=== PATIENT | male | born 1960 | race African-American/Black ===

== ENCOUNTER 2016-11-22 09:00 | Inpatient (IN) | payer OTHER ==
--- NOTE | ~2016-11-22 | PA ---
Unit #: [id number] #: [id number] Patient: JAK SIBLEY [id number] [facility] [address] [place] [address] [id number] I MR#: [id number] NAME: JAK SIBLEY ROOM: [facility] Age: 56 Sex: M Admission Date: 11/22/2016 : 1960 Date of Assessment: 11/23/2016 Attending Physician: Craig Quintana M.D. Admitting Physician: Craig Quintana M.D. Primary Care Physician: Primary Care Physician No PSYCHIATRIC ASSESSMENT INFORMANT The patient reliability, fair; chart reliability, good. CHIEF COMPLAINT Depression, cocaine abuse. HISTORY OF PRESENT ILLNESS Mr. Jak Sibley is a 56-year-old male, seen on , presented with the above-mentioned complaint. The patient presented reported using cocaine in the past 3 days, he reported he purchased heroin, but never used before. The patient threw the cocaine away. Recently, the patient reported he went to cemeter where grandmother is buried. The patient stated that he realized that he had hit rock bottom and decided to go and slit his wrist. The patient reported he called friend to pick him up. The patient stated that he was sober for almost 2 years then this episode happened. The patient lives with his significant other and will be able to go home. Think he is clean again and the patient need an inpatient admission at this time for psychiatric stabilization. PAST PSYCHIATRIC HISTORY Remarkable for history of inpatient treatment at [facility] for suicide attempt in 1990. FAMILY HISTORY AND SOCIAL HISTORY The patient has a good support system. No history of abuse. MEDICAL HISTORY Remarkable for history of HIV positive. Musculoskeletal; muscle strength and tone, no atrophy or abnormal movement. Gait, normal. MEDICATION HISTORY The patient is currently on Reyataz and Epzicom. ALLERGIES No known drug allergies. SUBSTANCE ABUSE HISTORY Tobacco use, age of onset 12. Alcohol, age of onset 12. Crack cocaine, half ounces, last use . The patient reported longest period of sobriety 2 years, last period of sobriety in 2014. No history of blackout, history of HIV, history of withdrawal symptom, IV drug use. Currently, reporting headache, abdominal cramping, depressed mood, Unit #: [id number] #: [id number] Patient: JAK SIBLEY restlessness. REVIEW OF SYSTEMS HEENT: Eyes, clear. Ears, nose, mouth, and throat; clear. CARDIOVASCULAR: Unremarkable. RESPIRATORY: Unremarkable. GI: Unremarkable. : Unremarkable. SKIN: Unremarkable. LYMPH NODE: Unremarkable. NEUROLOGIC: Unremarkable. ENDOCRINE: Unremarkable. HEMATOLOGIC: Unremarkable. ALLERGIC/IMMUNOLOGIC: Unremarkable. MUSCULOSKELETAL: Muscle strength and tone, no atrophy or abnormal movement. Gait normal. MENTAL STATUS EXAMINATION CONSTITUTIONAL: Measurement of vital signs; temperature 98.3, pulse 74, respiratory rate 18, blood pressure 94/58, height 5 feet 5 inches, and weight 150 pounds. GENERAL APPEARANCE: The patient dressed casually. The patient did not show any facial deformity. MUSCULOSKELETAL: Please see above. PSYCHIATRIC EXAMINATION Description of speech; regular rate, normal volume, normal articulation, coherent. Description of thought process, goal directed. Description of association, intact. Description of abnormal psychotic thinking; the patient denied any hallucination, delusions, mood lability, depression, substance abuse. Description of patient's judgment; concerning everyday activity, poor. Social situation, poor. Concerning psychiatric condition, poor. Complete mental status examination; oriented in time, place, and person. Recent and remote memory, fair. Attention span and concentration, fair. Language, able to name object and repeat phrases. Fund of knowledge, aware of current event and past history. Vocabulary, intact. Mood and affect, sad and depressed. Insight and judgment, fair to poor. ASSETS AND LIABILITIES Assets; the patient articulate, able to take care of his ADL. Liability, history of substance abuse and depression. ADMITTING DIAGNOSES Psychiatric: Cocaine use disorder, moderate, F14.20; mood disorder, not otherwise specified, F32.9. Secondary diagnosis: Deferred. Medical diagnosis: History of human immunodeficiency virus positive. Stressors: Psychosocial stressors. PSYCHIATRIC PLAN AND TREATMENT GOAL AND DISCHARGE PLAN 1. Advised to admit the patient on the inpatient unit. Provide safe, supportive, and structured environment. 2. Ordered labs; CBC, CMP, UA, and UDS. Unit #: [id number] #: [id number] Patient: JAK SIBLEY 3. Precaution for detox protocol and detox monitoring. 4. The patient to attend all the programing on the inpatient unit, group therapy, individual therapy. I advised to resume home medication. If needed, consider further adjustment of medication. The patient to attend all the programing on the inpatient unit. TREATMENT GOAL To attain euthymic mood, gain insight into his problem, and learn coping skills. DISCHARGE PLAN Plan to stabilize the patient and consider followup in outpatient program. ESTIMATED LENGTH OF STAY 3 to 5 days. Dictated by... Kristen Chandler/keyon TD: 11/24/2016 06:57 JOB #: [id number] PSYCHIATRIC ASSESSMENT Page 1 of 1 X Craig Quintana MD X PSYCHIATRIC ASSESSMENT
--- NOTE | ~2016-11-22 | HP ---
Unit #: [id number] #: [id number] Patient: JAK SIBLEY [id number] [place] [address] [id number] MR#: [id number] NAME: JAK SIBLEY ROOM: [facility] Age: 56 Sex: M Admission Date: 11/22/2016 : 1960 Attending Physician: Craig Quintana M.D. Admitting Physician: Craig Quintana M.D. Primary Care Physician: Primary Care Physician No HISTORY AND PHYSICAL HISTORY OF PRESENT ILLNESS The patient is a 56-year-old male who states he was admitted due to drug abuse, cocaine. PAST MEDICAL HISTORY Significant for HIV. PAST SURGICAL HISTORY None. ALLERGIES None. SOCIAL HISTORY Positive for cocaine. FAMILY HISTORY Noncontributory. REVIEW OF SYSTEMS CONSTITUTIONAL: No fever or chills. HEENT: Denies any sore throat, ear pain or runny nose. CARDIOVASCULAR: Denies chest pain, irregular heart rhythm or palpitations. CHEST: Denies shortness of breath or cough. No hemoptysis. GASTROINTESTINAL: Denies nausea, vomiting, diarrhea or chronic constipation. ENDOCRINE: Denies history of increased thirst or urination. No recent significant weight loss or gain. GENITOURINARY: Denies dysuria, frequency, or hematuria. SKIN: Denies any rashes. HEMATOLOGIC: Denies history of increased bleeding or bruising. MUSCULOSKELETAL: Denies any hot, swollen joints. No generalized muscle pain. NEUROLOGIC: Denies problems with vision or speech. No frequent, severe headaches. No numbness, tingling or weakness in any extremities. Denies loss of bladder or bowel control. CURRENT MEDICATIONS Not available, being verified at this time. PHYSICAL EXAMINATION GENERAL: Alert, oriented, in no acute distress. VITAL SIGNS: Temperature 98.5, heart rate 85, respirations 18, blood Unit #: [id number] #: [id number] Patient: JAK SIBLEY pressure 127/85. HEIGHT: 5 feet 5 inches. WEIGHT: 150 pounds. SKIN: Warm and dry without rash or lesion. Scar to bilateral upper arms, piercing to the left ear and callus to the right heel. HEENT: Normocephalic. TMs not viewed. Oral and nasal passages clear. Conjunctivae clear. PERRLA. EOMs intact. NECK: Supple without lymphadenopathy or thyromegaly. HEART: Regular rate and rhythm without murmur. LUNGS: Clear. ABDOMEN: Soft, nontender, without masses or hepatosplenomegaly. : Not done. EXTREMITIES: No evidence of cyanosis, clubbing or edema. Moves all without focal deficit. NEUROLOGICAL: Grossly within normal limits. Cranial Nerves: II: Visual marks are intact. III, IV AND : Extraocular movements are intact. Pupils are equal, round and reactive to light. V: Facial sensation is grossly normal. VII: Facial movements and expression are normal. VIII: Auditory acuity grossly intact. IX, X: Uvula is midline. Phonation is normal. XI: Patient shrugs shoulders and turns head normally. XII: Tongue protrudes in the midline. Sensory and Motor Function: Sensory and motor sensation is grossly normal. Motor: moves all extremities well. Coordination: Gait is normal. Deep Tendon Reflexes: Intact. IMPRESSION Psychiatric admission. RECOMMENDATIONS PSYCHIATRIC: Per psychiatrist. MEDICAL: No contraindications to participate in facility's activities. MEDICAL PROGNOSIS Good. Dictated by... Leticia Pond/harry TD: 11/22/2016 21:25 JOB #: [id number] Unit #: [id number] #: [id number] Patient: JAK SIBLEY HISTORY AND PHYSICAL Page 1 of 1 X Elana Milligan APR X HISTORY AND PHYSICAL
--- NOTE | ~2016-11-22 | DS ---
Unit #: [id number] #: [id number] Patient: JAK SIBLEY [id number] [facility] [address] [place] [address] [id number] MR#: [id number] NAME: JAK SIBLEY ROOM: [facility] Age: 56 Sex: M Admission Date: 11/22/2016 : 1960 Discharge Date: 11/25/2016 Attending Physician: Craig Quintana M.D. Primary Care Physician: Primary Care Physician No DISCHARGE SUMMARY REASON FOR ADMISSION Detox. DIAGNOSTIC STUDIES LABORATORY RESULTS: Urine drug screen positive for benzodiazepine and cocaine. HOSPITAL COURSE The patient was admitted to inpatient unit on 11/22/2016 and discharged on 11/25/2016. The patient was treated with group therapy, individual therapy, and medication management. The patient responded well with the above modalities of treatment, maintained safe behavior. Subsequently, the patient was discharged with a plan to follow up in outpatient program. DISCHARGE MEDICATIONS None. DISCHARGE DIAGNOSES Psychiatric: 1. Cocaine use disorder, moderate, F14.20. 2. Mood disorder, not otherwise specified, F32.9. 3. Sedative-hypnotic use disorder, moderate, F13.20. Secondary diagnosis: Deferred. Medical diagnosis: History of human immunodeficiency virus positive. Stressors: Psychosocial stressors. DISCHARGE INSTRUCTIONS The patient is to follow up in outpatient clinic as per perinatal social worker. CONDITION ON DISCHARGE The patient was pleasant and cooperative. Denied any psychotic symptom or any suicidal ideation. PROGNOSIS Guarded. DIET AND ACTIVITY As tolerated. Dictated by... Unit #: [id number] #: [id number] Patient: JAK SIBLEY Kristen Chandler/keyon TD: 11/25/2016 22:50 JOB #: [id number] DISCHARGE SUMMARY Page 1 of 1 X Craig Quintana MD X DISCHARGE SUMMARY
--- NOTE | ~2016-11-22 | PN ---
Unit #: [id number] #: [id number] Patient: JAK SIBLEY [id number] [facility] [address] [place] [address] [id number] MR#: [id number] NAME: JAK SIBLEY ROOM: [facility] Age: 56 Sex: M Admission Date: 11/22/2016 : 1960 Attending Physician: Craig Quintana M.D. Admitting Physician: Craig Quintana M.D. Primary Care Physician: Primary Care Physician Chrystal SCOTT NOTES DATE 11/23/2016 DISCUSSION Jak is a 56-year-old male, seen on 11/23/2016. The patient interviewed, chart reviewed, and obtained information from the nursing staff on 11/23/2016. The patient's vital signs are stable, 98.3, 74, 18, and 94/58. Height, 5 feet 5 inches. Weight, 150 pounds. MENTAL STATUS EXAMINATION General appearance: Patient dressed casually. The patient did not show any facial deformity. Musculoskeletal, muscle strength and tone, no atrophy, no abnormal movements. Gait normal. Attention span and concentration, fair. Oriented to time, place, and person. Mood and affect, sad and dysphoric. Speech, regular rate. Thought process, goal-directed. The patient denied any thoughts of harming self or others. Recent and remote memory, poor. Insight and judgment, poor. DIAGNOSES 1. Cocaine abuse disorder, moderate, F14.20. 2. Mood disorder, NOS, F32.9. ASSESSMENT/PLAN Advised to continue with therapeutic protocol, if needed consider further adjustment of medication. Dictated by... Kristen Chandler/andre TD: 11/25/2016 07:30 JOB #: [id number] Unit #: [id number] #: [id number] Patient: JAK SIBLEY RANGELPEDRO SONIA NOTES Page 1 of 1 X Craig Quintana MD PROGRESS NOTE
--- NOTE | ~2016-11-22 | PN ---
Unit #: [id number] #: [id number] Patient: JAK HATFIELD [id number] [facility] [address] [place] [address] [id number] I MR#: [id number] NAME: JAK HATFIELD ROOM: [facility] Age: 56 Sex: M Admission Date: 11/22/2016 : 1960 Attending Physician: Craig Quintana M.D. Admitting Physician: Craig Quintana M.D. Primary Care Physician: Primary Care Physician Chrystal IVEY PROGRESS NOTES DATE OF SERVICE 11/24/2016 DISCUSSION Jak Hatfield is a 56-year-old male seen on 11/24/2016. Patient interviewed, chart reviewed, I obtained information from nursing staff. Patient pleasant, cooperative, maintained safe behavior, denied any thoughts of harming self or others, denied any psychotic symptom. Patient reports making progress and participating in group. COMPLETE REVIEW OF SYSTEMS Unremarkable. MENTAL STATUS EXAMINATION GENERAL APPEARANCE: Patient dressed casually. ATTENTION SPAN AND CONCENTRATION: Fair. Oriented in time, place and person. MOOD AND AFFECT: Labile. SPEECH: Regular rate. THOUGHT PROCESS: Goal directed. Patient denied any thoughts of harming self or others. RECENT AND REMOTE MEMORY: Poor. INSIGHT AND JUDGMENT: Poor. DIAGNOSES Mood disorder, NOS Cocaine use disorder, moderate ASSESSMENT/PLAN Advised to continue with current medication and therapeutic protocol. If needed, consider further adjustment in medication. Dictated by... Kristen Chandler/tricia TD: 11/25/2016 20:12 JOB #: [id number] Unit #: [id number] #: [id number] Patient: JAK HATFIELD PROGRESS NOTES Page 1 of 1 X Craig Quintana MD PROGRESS NOTE
[2016-11-23 11:43] LABS: ALBUMIN SERUM 3.6 g/dL (3.5-5.0); BILIRUBIN,TOTAL 0.8 mg/dL (0.2-2.0); BUN/CREATININE RATIO 18.75; CREATININE SERUM 0.8 mg/dL (0.6-1.4); GLOM FILT RATE Estimated 115.8 mL/min (>60); POTASSIUM 4.1 mmol/L (3.5-5.1); PROTEIN TOTAL SERUM 6.1 g/dL (6.0-8.3)
[2016-11-24 10:20] LABS: URINE APPEARANCE TURBID; URINE BILIRUBIN NEG (NEG); URINE BLOOD NEG (NEG); URINE COLOR DK YELLOW; URINE GLUCOSE NEG (NEG); URINE KETONE NEG (NEG); URINE LEUKOCYTE ESTERASE TRACE (NEG); URINE NITRATE NEG (NEG); URINE PROTEIN NEG (NEG); URINE SPECIFIC GRAVITY 1.025 (1.003-1.035); URINE UROBILINOGEN 0.2 MG/DL (NEG)
[2016-11-24 10:23] LABS: URBCS1 AUWI 0-2 /[HPF] (0-2); URINE BACTERIA AUWI NEG (NEGATIVE); URINE SQUAMOUS EPITHELIAL CELL NONE SEEN /[HPF]
[2016-11-24 11:05] LABS: AMPHETAMINE NEG (NEG); BARBITURATES NEG (NEG); BENZODIAZEPINES POS (NEG); COCAINE POS (NEG); MARIJUANA NEG (NEG); OPIATES NEG (NEG); TRICYCLIC ANTIDEPRESSANTS NEG (NEG); U METHADONE NEG (NEG)
== END 2016-11-25 07:35 | disposition home or self-care (01) | DRG 896 ==
LOC: P1E 12:16
PROVIDERS: Psychiatry & Neurology Psychiatry
PROC: HZ2ZZZZ Detoxification Services for Substance Abuse Treatment (ICD-10-PCS; principal; 2016-11-22)
DX: F14.20 Cocaine dependence, uncomplicated (principal); B20 Human immunodeficiency virus [HIV] disease; F39 Unspecified mood [affective] disorder; Z91.5 Personal history of self-harm
CPT/HCPCS: 80053; 80307; 81003